=== PATIENT | male | born 1975 | race Caucasian/White ===

== ENCOUNTER 2022-12-22 21:55 | Emergency (ER) | payer OTHER ==
[~2022-12-22] VITALS: Ht 170.2 cm; Wt 63.5 kg
[2022-12-22 22:04] VITALS: BP 134/82; PULSE 54; RESP 12; TEMP 98.4; O2SAT 99
[2022-12-22] MEDS ORDERED: BACITRACIN OINT 500 UNITS/GM PKT TP ONE (23:55)
[2022-12-23] MEDS ORDERED: LIDOCAINE 2% 1000 MG/50 ML VIAL INJ ONE ×2 (01:00→01:01)
[2022-12-23] MEDS ORDERED: BACI-418 TP (01:53)
[2022-12-23] MEDS ORDERED: ACET-10509 PO (01:53)
[2022-12-23 02:00] VITALS: BP 134/82; PULSE 54; RESP 12; TEMP 98.4; O2SAT 99
== END 2022-12-23 02:00 | disposition home or self-care (01) ==
LOC: MED 21:55
DX: S61.211A Laceration without foreign body of left index finger without damage to nail, initial encounter (principal); Z79.899 Other long term (current) drug therapy; W25.XXXA Contact with sharp glass, initial encounter; Y93.89 Activity, other specified; Y92.89 Other specified places as the place of occurrence of the external cause; Y99.8 Other external cause status
CPT/HCPCS: 12001; 73140; 99283; J2001; Q0092

== ENCOUNTER 2023-01-03 12:53 | Emergency (ER) | payer OTHER ==
[~2023-01-03] VITALS: Ht 170.2 cm; Wt 67.6 kg
[~2023-01-03 12:53] MED LIST: ACET-10509 PO; BACI-418 TP
[2023-01-03 13:08] VITALS: BP 122/69; PULSE 58; RESP 20; TEMP 98.3; O2SAT 100
== END 2023-01-03 14:14 | disposition home or self-care (01) ==
LOC: MED 12:53
DX: S61.213D Laceration without foreign body of left middle finger without damage to nail, subsequent encounter (principal); Z79.899 Other long term (current) drug therapy; X58.XXXD Exposure to other specified factors, subsequent encounter
CPT/HCPCS: 99281